=== PATIENT | male | born 1930 | race African-American/Black ===

== ENCOUNTER 2019-02-21 16:11 | Observation (INO) ==
[2019-02-21] MEDS ORDERED: ENOXAPARIN 100 MG/ML SYRINGE SUBCUT STA (17:35)
[2019-02-21] MEDS ORDERED: ASPIRIN 325 MG TABLET PO STA (17:35)
[2019-02-21 17:49] LABS: Basophils % 0.8 % (0.0-0.8); Eosinophils # 0.2 10*3/uL (0.0-0.87); Eosinophils % 3.4 % (0.00-10.9); Hematocrit 43.8 VOL% (42.0-52.0); Hemoglobin 13.9 GM/DL (14.0-18.0); Immature Granulocytes % 0.2 %; Immature Granulocytes Absolute 0.01 #; Lymphocytes # 1.4 10*3/uL (1.4-4.0); Lymphocytes % 28.9 % (21.2-54.2); Mean Corpuscular HGB Conc 31.7 GM/DL (32-36); Mean Corpuscular Volume 87.4 FL (87-102); Mean Platelet Volume 9.3 FL (9.6-12.0); Monocytes % 9.7 % (1.7-12.7); Platelet Count 244 T/CUMM (130-400); Red Blood Count 5.01 MC/CUMM (3.8-5.5); Red Cell Distribution Width 13.8 % (9.3-17.3); White Blood Count 4.9 T/CUMM (4-12)
[2019-02-21 18:39] LABS: Albumin 3.3 G/DL (3.4-5.0); Bilirubin,Total 0.4 MG/DL (0.2-1.0); Calcium 8.6 MG/DL (8.5-10.1); Osmolality,Calculated 286.8 MOS/KG (273-304)
[2019-02-21] MEDS ORDERED: PANTOPRAZOLE 40 MG TABLET PO PRN (20:01)
[2019-02-21] MEDS ORDERED: ACETAMINOPHEN 325 MG TABLET PO PRN (20:02)
[2019-02-21] MEDS ORDERED: GLUCAGON 1 MG VIAL IM PRN (20:02)
[2019-02-21] MEDS ORDERED: ONDANSETRON 4 MG/2 ML VIAL IV PRN (20:02)
[2019-02-21] MEDS ORDERED: DEXTROSE 10% 250 ML BAG IV PRN (20:02)
[2019-02-21] MEDS ORDERED: FERROUS SULFATE 325 MG TABLET PO SCH (20:30)
[2019-02-21] MEDS ORDERED: amLODIPine 5 MG TABLET PO SCH (21:00)
[2019-02-21] MEDS ORDERED: ENOXAPARIN 40 MG/0.4 ML SYRINGE SUBCUT SCH (21:00)
[2019-02-21] MEDS: TAMSULOSIN 0.4 MG CAPSULE PO SCH (23:00)
[2019-02-21] MEDS: LACTATED RINGERS 1,000 ML IV SCH (23:00)
[2019-02-21] MEDS: GABAPENTIN 300 MG CAPSULE PO SCH (23:01)
[2019-02-22 00:13] LABS: Troponin I < 0.015 NG/ML (0.00-0.045)
[2019-02-22 01:27] LABS: Troponin I < 0.015 NG/ML (0.00-0.045)
[2019-02-22 02:48] LABS: Basophils % 0.7 % (0.0-0.8); Eosinophils # 0.2 10*3/uL (0.0-0.87); Eosinophils % 3.8 % (0.00-10.9); Hematocrit 42.5 VOL% (42.0-52.0); Hemoglobin 13.9 GM/DL (14.0-18.0); Immature Granulocytes % 0.2 %; Immature Granulocytes Absolute 0.01 #; Lymphocytes % 36.9 % (21.2-54.2); Mean Corpuscular HGB Conc 32.7 GM/DL (32-36); Mean Corpuscular Volume 85.5 FL (87-102); Mean Platelet Volume 9.1 FL (9.6-12.0); Monocytes % 9.4 % (1.7-12.7); Platelet Count 230 T/CUMM (130-400); Red Blood Count 4.97 MC/CUMM (3.8-5.5); Red Cell Distribution Width 13.5 % (9.3-17.3); White Blood Count 5.5 T/CUMM (4-12)
[2019-02-22 03:12] LABS: Troponin I < 0.015 NG/ML (0.00-0.045)
[2019-02-22 06:06] LABS: Calcium 8.4 MG/DL (8.5-10.1); Osmolality,Calculated 285.7 MOS/KG (273-304)
[2019-02-22 06:15] LABS: Risk Ratio 2.08; Thyroid Stimulating Hormone 2.58 uIU/ml (0.358-3.74)
[2019-02-22 07:45] VITALS: BP 144/72
[2019-02-22] MEDS ORDERED: ASPIRIN EC 81 MG TABLET PO SCH (09:00)
[2019-02-22] MEDS: GABAPENTIN 300 MG CAPSULE PO SCH (09:14)
[2019-02-22] MEDS: TAMSULOSIN 0.4 MG CAPSULE PO SCH (09:14)
[2019-02-22] MEDS: LACTATED RINGERS 1,000 ML IV SCH (09:17)
== END 2019-02-22 11:20 | disposition home or self-care (01) ==
LOC: N.EDINP 16:11 → N.ED 16:11 → N.2W 21:20
PROVIDERS: ADMIT Internal Medicine; ATTEND Internal Medicine